=== PATIENT | male | born 1970 | race Caucasian/White ===

== ENCOUNTER 2023-08-23 01:13 | Emergency (ER) | payer OTHER, SELFPAY ==
[2023-08-23 01:19] VITALS: BP 146/87; PULSE 84; RESP 18; TEMP 36.2; O2SAT 97
[2023-08-23 02:17] VITALS: BP 134/77; PULSE 78; RESP 18; O2SAT 98
[2023-08-23 03:33] LABS: Basophils Absolute Auto 0.1 K/mm3 (0.0-0.1); Basophils Percent Auto 0.9 % (0.2-1.2); Eosinophils Absolute Auto 0.3 K/mm3 (0-0.3); Eosinophils Percent Auto 3.1 % (0-4.4); Hematocrit 37.1 % (42.0-52.0); Hemoglobin 12.2 g/dL (14.0-18.0); Immature Granulocyte Absolute 0.02 K/mm3 (0.00-0.031); Immature Granulocyte Percent A 0.2 % (0-0.5); Lymphocytes Absolute Auto 1.93 K/mm3 (0.9-3.2); Lymphocytes Percent Auto 23.6 % (18.3-44.2); Mean Corpuscular HGB Conc 32.9 g/dl (32-36); Mean Corpuscular Volume 94.2 fl (80-100); Mean Platelet Volume 8.6 fl (7.4-10.4); Monocytes Absolute Auto 0.5 K/mm3 (0.1-0.6); Monocytes Percent Auto 6.2 % (2.6-8.5); Neutrophils Absolute Auto 5.4 K/mm3 (1.3-6.7); Platelet Count Result 262 k/mm3 (150-375); Red Blood Count 3.94 M/mm3 (4.6-6.20); Red Cell Distribution Width 12.4 % (11.5-14.5); White Blood Count 8.2 K/mm3 (4.5-10.0)
[2023-08-23 03:45] LABS: Alanine Aminotransferase 16 U/L (6-50); Albumin Level 3.6 g/dL (3.5-5.1); Alkaline Phosphatase 79 U/L (38-126); Anion Gap 7 mmol/L (8-16); Aspartate Amino Transferase 30 U/L (17-59); Bilirubin,Total 0.4 mg/dL (0.2-1.3); Blood Urea Nitrogen 12 mg/dL (9-20); Carbon Dioxide 25 mmol/L (22-30); Chloride 105 mmol/L (98-107); Estimated CRCL calculation 88 ml/min; Estimated Glomerular Filt Rate > 60; Glucose 110 mg/dL (65-110); Potassium 4.2 mmol/L (3.4-5.0); Sodium 137 mmol/L (137-145)
--- NOTE | 2023-08-23 04:33 | ED.GENADULT ---
HPI - General Adult General Chief complaint: Skin/Abscess/Foreign Body Stated complaint: sores on legs and arms x 1 month Time Seen by Provider: 08/23/23 02:44 History of Present Illness HPI narrative: Patient 53-year-old gentleman who presents emergency department chief complaint of wounds on his legs. The patient reports that he is homeless and was at a local restaurant trying to stay warm and was forced to leave on the police the patient reports that he has several areas of redness in his lower extremities reports that he was seen at [facility] and they gave him some topical ointment and discharged him without looking at his legs the patient states that it hurts whenever he walks reports that he has no place that he can go patient denies chest pain denies shortness of breath Related Data Allergies Allergy/AdvReac Type Severity Reaction Status Date / Time codeine AdvReac Gastrointestinal Verified 08/23/23 02:16 Upset Review of Systems Review of Systems: A 10 system review of systems was completed on the patient and is negative except for what is stated in the HPI. Nursing and ancillary documentation was reviewed. Exam Narrative: GENERAL: Well-appearing, well-nourished, and in no acute distress. HEAD: Normocephalic, atraumatic. EYES: PERRLA and EOMI. ENT: Nares clear, no rhinorrhea or epistaxis. Mucous membranes moist. NECK: Supple. CHEST: Clear to auscultation. No respiratory distress. HEART: Regular rate and rhythm. No murmur heard. Normal peripheral pulses. ABDOMEN: Soft, nontender, nondistended, normal active bowel sounds. EXTREMITIES: Normal range of motion. No edema. SKIN: Warm, dry, several areas of erythema and small ulceration present on the lower extremities no crepitance no subcu emphysema. NEURO: No focal deficits. Alert and oriented x3. PSYCH: Normal mood and affect. Course Vital Signs Vital signs: Vital Signs Temperature 36.2 C L 08/23/23 01:19 Pulse Rate 84 08/23/23 01:19 Respiratory Rate 18 08/23/23 01:19 Blood Pressure 146/87 H 08/23/23 01:19 Pulse Oximetry 97 08/23/23 01:19 Oxygen Delivery Room Air 08/23/23 01:19 Temperature 36.2 C L 08/23/23 01:19 Pulse Rate 78 08/23/23 02:17 Respiratory Rate 18 08/23/23 02:17 Blood Pressure 134/77 08/23/23 02:17 Pulse Oximetry 98 08/23/23 02:17 Oxygen Delivery Room Air 08/23/23 01:19 Medical Decision Making Vital Signs Vital Signs: Vital Signs Temperature 36.2 C L 08/23/23 01:19 Pulse Rate 84 08/23/23 01:19 Respiratory Rate 18 08/23/23 01:19 Blood Pressure 146/87 H 08/23/23 01:19 Pulse Oximetry 97 08/23/23 01:19 Oxygen Delivery Room Air 08/23/23 01:19 Temperature 36.2 C L 08/23/23 01:19 Pulse Rate 78 08/23/23 02:17 Respiratory Rate 18 08/23/23 02:17 Blood Pressure 134/77 08/23/23 02:17 Pulse Oximetry 98 08/23/23 02:17 Oxygen Delivery Room Air 08/23/23 01:19 Lab Data 08/23/23 03:25 08/23/23 03:25 Labs: Lab Results 08/23/23 Range/Units 03:25 WBC 8.2 (4.5-10.0) K/mm3 RBC 3.94 L (4.6-6.20) M/mm3 Hgb 12.2 L (14.0-18.0) g/dL Hct 37.1 L (42.0-52.0) % MCV 94.2 (80-100) fl MCH 31.0 (26-34) pg MCHC 32.9 (32-36) g/dl RDW 12.4 (11.5-14.5) % Plt Count 262 (150-375) k/mm3 MPV 8.6 (7.4-10.4) fl Immature Gran % (Auto) 0.2 (0-0.5) % Neut % (Auto) 66.0 (45.5-73.1) % Lymph % (Auto) 23.6 (18.3-44.2) % [place] % (Auto) 6.2 (2.6-8.5) % Eos % (Auto) 3.1 (0-4.4) % Baso % (Auto) 0.9 (0.2-1.2) % Lymph # (Auto) 1.93 (0.9-3.2) K/mm3 [place] # (Auto) 0.5 (0.1-0.6) K/mm3 Eos # (Auto) 0.3 (0-0.3) K/mm3 Baso # (Auto) 0.1 (0.0-0.1) K/mm3 Abs Immat Gran (auto) 0.02 (0.00-0.031) K/mm3 Absolute Neuts (auto) 5.4 (1.3-6.7) K/mm3 Absolute Nucleated RBC 0.0 (0.0-0.012) K/mm3 Nucleated RBC % 0.0 (0.0-0.2) % Sodium 137 (137-145) mmol/L Potassium 4.2 (3.4-5.0)
== END 2023-08-23 05:15 | disposition home or self-care (01) ==
PROVIDERS: Emergency Provider Emergency Medicine
DX: L03.116 Cellulitis of left lower limb (principal); L03.115 Cellulitis of right lower limb; Z59.00 Homelessness unspecified
CPT/HCPCS: 36415; 80053; 85025; 99283